=== PATIENT | male | born 1950 | race Caucasian/White ===

== ENCOUNTER 2017-07-24 12:45 | Inpatient (IN) ==
--- NOTE | 2017-07-26 12:31 | Internal Med History&Physical ---
Date of Encounter: 07/26/17 Time of Encounter: 12:26 Assessment and Plan (1) Clostridium difficile infection Current visit: No Status: Acute still having loose bowel movement continue present management Flagyl and Oral Vanco supportive treatment Labs ordered (2) Alcohol abuse Current visit: No Status: Chronic hx of one Pint a week no hx of withdrawl will follow and continue to monitor (3) Edema extremities Current visit: Yes Status: Chronic cause not known at the present with hx of Anemia , this all could be due to long hx of ETOH abuse and low Albumin. he denies any cardiac hx . Will order TSH , if needed cardiac echo and further assessment as needed (4) Back pain Current visit: Yes Status: Acute lower back pain not sure if its acute or chronic in nature according to him he had such pain in the past as well neurological stable will get xray to assess any vertebral deformity ,symptomatic treatment Qualifiers: Back pain location: low back pain Chronicity: unspecified Back pain laterality: midline Sciatica presence: without sciatica Qualified Code(s): M54.5 - Low back pain Internal Medicine - H&P: HPI Admitted From: Hospital to Hospital Transfer History of present illness: Mr. Horne is a 67 year old male with significant hx of ETOH abuse ,started having weakness and was unable to getup from bathroom roughly a week a go . he was taken to ED and was found to be septic ,cause C diff . He dneis using any antibiotics before this illness . Apparently he also had UTI. He was treated and once improved sent to [place] for continuation of treatment and rehab and he was weak and deconditioned . he still has some diarrhea but it has improved considerably Still his stool is loose . No abdominal pain still has some gas mild abdominal pain . He Denies any fever or chill no cough SOB on exertion only Feels weak in his legs Also complains of pain in lower back . he denies any Chest pain Nausea vomiting . Otherwise he feels fine. No hx of ETOH withdrawal last drin was about 8 days ago Past Med Surg Social Fam HX - Past Medical History Medical history: arthritis, GERD, liver disease, other (Monoclonal gammopathy of uncertain significance. Chronic alcoholism. Iron deficiency anemia.) Psychiatric history: no psych history, other - Past Surgical History Surgical History: non-contributory, other - Social History Smoking Status: Former smoker Smokeless Tobacco Status: No Alcohol use: heavy (1 liter of vodka per week), recent Drug use: none, unknown - Family History Father Family Member Ethnicity: Non- Living Status: Hx Family Cardiac Disorders: Yes Mother Family Member Ethnicity: Non- Living Status: Hx Family Cardiac Disorders: Yes Internal Medicine - H&P: Meds Acetaminophen [Tylenol] 650 mg PO Q6HR PRN tab 07/26/17 [Rx] Folic Acid 1 mg PO DAILY tab 07/26/17 [Rx] Lactobacillus [Culturelle] 1 each PO BID 07/26/17 [Rx] Omeprazole [PriLOSEC] 20 mg PO DAILY@0630 07/26/17 [Rx] Potassium Chloride 40 meq PO BID 07/26/17 [Rx] Thiamine (B-1) [Vitamin B-1] 100 mg PO DAILY tab 07/26/17 [Rx] Vancomycin Oral Soln [Vancocin] 250 mg PO QID 07/26/17 [Rx] Vitamin B Complex/Vit C/Vit E [Stresstab] 1 each PO DAILY tab 07/26/17 [Rx] metroNIDAZOLE [Flagyl] 500 mg PO Q6HR tab 07/26/17 [Rx] 3 Allergy/AdvReac Type Severity Reaction Status Date / Time No Known Allergies Allergy Verified 03/20/17 19:49 All Systems PM: A 10-system review of systems was performed and is negative for pertinent findings except as documented above in the HPI. - Constitutional Constitutional: malaise, weakness, no anorexia, no chills, no excessive sweating , no fatigue, no falls, no lethargy, no weight gain, no weight loss - EENT Eyes: no blurry vision, no change in vision, no diplopia, no loss of peripheral vision, no loss of vision, no pain, no photophobia Nose, mouth and throat: no change in voice, no dysphagia, no epistaxis, no nasal discharge, no nasal obstruction, no sinus pain, no sinus pressure, no sore throat - Breasts Breasts: no pain, no nipple discharge - Cardiovascular Cardiovascular ROS IM: dyspnea on exertion, edema, no chest pain, no claudication, no diaphoresis, no irregular heart rhythm, no lightheadedness, no orthopnea, no palpitations, no paroxysmal nocturnal dyspnea Additional comments: on exertion walk quickly - Respiratory Respiratory: dyspnea, dyspnea on exertion, no cough, no hemoptysis, no wheezing , no pain on inspiration, no chest congestion, no pain with cough - Gastrointestinal Gastrointestinal: abdominal pain, bloating, change in stool character, diarrhea , no constipation, no cramping, no dysphagia, no fecal incontinence, no melena, no nausea, no tenesmus Additional comments: abdominal pain lower abdomen improved but still feel little tender - Musculoskeletal Musculoskeletal ROS IM: back pain, no joint swelling, no limited range of motion , no muscle cramps, no neck pain, no stiffness, no tingling Additional comments: generalized weakness in legs - Neurological Neurological ROS: no abnormal gait, no abnormal movements, no abnormal speech, no confusion, no convulsions, no dizziness, no loss of vision, no numbness, no paresthesias, no radicular pain, no restless legs, no tremor(s) - Constitutional General appearance: Present: A&O X 3, pleasant. Absent: cachectic, mild distress, no acute distress, obese, severe distress - Head Head exam: Present: normal inspection - Expanded Head Exam Head exam expanded: Absent: contusion, laceration - Eye Eye exam: Present: EOMI, PERRL. Absent: periorbital swelling, scleral icterus, conjuntiva pink - ENT ENT exam: Present: mucous membranes moist. Absent: normal oropharynx - Neck Neck exam general surgery: Present: full ROM, supple. Absent: nuchal rigidity - Respiratory Respiratory exam: Absent: chest wall tenderness, CTAB, respiratory distress, rhonchi, stridor, wheezes, tachypnea - Cardiovascular Cardiovascular exam: Present: RRR. Absent: clicks, gallop, irregular rhythm, JVD, rubs - GI/Abdominal GI/Abdominal exam: Present: normal bowel sounds, soft, tenderness. Absent: pulsatile mass, rebound, rigid Additional comments: mild tenderness lower abdomen , no rebound - Rectal Rectal exam: Present: deferred Additional comments: having watery diarrhea - Extremities Exam Extremities exam: Present: pedal edema. Absent: mottling Additional comments: left pitting edema ++ right less + no swelling no tenderness - Back Exam Back exam: Present: normal inspection, tenderness. Absent: muscle spasm, rash noted Additional comments: lumbar area tenderness L4/5 area no para vertebral spasm noted no rash - Neurological Exam Neurological exam: Present: alert, CN II-XII intact, oriented X3, no focal deficits, strengths equal and symetr throughout. Absent: facial droop, speech deficit Additional comments: examination within normal limits - Psychiatric Psychiatric exam: Present: normal affect, normal mood. Absent: homicidal ideation, suicidal ideation
[2017-07-26] MEDS: Vancomycin Oral Soln 250 MG/2.5 ML UDC PO SCH ×3 (18:22→23:18)
[2017-07-26] MEDS: metroNIDAZOLE 500 MG TABLET PO SCH ×2 (18:29→23:17)
[2017-07-26] MEDS: Lactobacillus 1 EACH CAP.SPRINK PO SCH (23:17)
[2017-07-27 05:26] LABS: Basophils # 0.1 K/mcL (0.0-0.2); Basophils % 0.3 %; Eosinophils # 0.3 K/mcL (0.0-0.6); Eosinophils % 1.4 %; Hematocrit 27.1 % (37.5-50.1); Hemoglobin 9.3 g/dL (12.9-16.9); Immature Granulocytes % 4.3 % (0-4); Lymphocytes % 9.4 %; Mean Corpuscular HGB Conc 34.3 g/dL (31.6-35.5); Mean Corpuscular Hemoglobin 35.9 pg (28.0-33.3); Mean Corpuscular Volume 104.6 fL (83.0-100.0); Mean Platelet Volume 10.3 fL (9.4-12.4); Monocytes # 1.5 K/mcL (0.0-1.3); Monocytes % 7.2 %; Neutrophils # 16.5 K/mcL (1.6-8.9); Platelet Count 550 K/mcL (140-400); Red Blood Count 2.59 M/mcL (4.19-5.50); Red Cell Distribution Width 16.6 % (11.5-14.5); Segmented Neutrophils % 77.4 %
[2017-07-27 05:45] LABS: BUN/Creatinine Ratio 10 (6-26); Blood Urea Nitrogen 6 mg/dL (8-26); Calcium 7.2 mg/dL (8.6-10.8); Carbon Dioxide 19 mEq/L (19-29); Chloride 110 mEq/L (98-109); Glucose 107 mg/dL (70-99); Osmolality,Calculated 284 (280-300); Potassium 4.7 mEq/L (3.5-4.5); Sodium 138 mEq/L (136-145); eGFR For African Americans > 60 (> 60); eGFR For Non-African Americans > 60 (> 60)
[2017-07-27] MEDS: metroNIDAZOLE 500 MG TABLET PO SCH ×4 (06:16→23:04)
[2017-07-27] MEDS: Acetaminophen 325 MG TABLET PO PRN (10:02)
[2017-07-27] MEDS: Vancomycin Oral Soln 250 MG/2.5 ML UDC PO SCH ×4 (10:03→21:28)
[2017-07-27] MEDS: Lactobacillus 1 EACH CAP.SPRINK PO SCH ×2 (10:03→21:24)
[2017-07-27] MEDS: Folic Acid 1 MG TABLET PO SCH (10:03)
[2017-07-27] MEDS: Vitamin B Complex/Vit C/Vit E 1 EACH TABLET PO SCH (10:03)
[2017-07-27] MEDS: Thiamine (B-1) 100 MG TABLET PO SCH (10:08)
--- NOTE | 2017-07-27 12:23 | Internal Med Progress Note ---
Date of Encounter: 07/27/17 Time of Encounter: 12:21 - Assessment and plan (1) Clostridium difficile infection Current Visit: No Status: Acute Assessment and plan: WBC still high he is still having loose stools ON oral Vanco and Flagyl Continue present treatment (2) Alcohol abuse Current Visit: No Status: Chronic Assessment and plan: stable no withdrawal (3) Edema extremities Current Visit: Yes Status: Chronic Assessment and plan: same as before (4) Back pain Current Visit: Yes Status: Acute Qualifiers: Back pain location: low back pain Chronicity: unspecified Back pain laterality: midline Sciatica presence: without sciatica Qualified Code(s): M54.5 - Low back pain (5) Seborrhea Current Visit: Yes Status: Chronic Assessment and plan: scales cabello and scalp no other lesions noted in other part of his body local treatment selenium sulfide and combination low potency steriod lotion on face - Subjective Interval history: pt denies any complains at the present time .No fever or chill .No abdominal discomfort .Has been having loose bowel movement still watery Sleeping well - Constitutional Vitals: Temp Pulse Resp BP Pulse Ox 98.0 F 93 18 102/64 97 07/27/17 10:48 07/27/17 10:48 07/27/17 10:48 07/27/17 10:48 07/27/17 10:48 General appearance: Present: A&O X 3, pleasant. Absent: cachectic, mild distress, no acute distress, obese, severe distress - Head Head exam: Present: atraumatic - Eye Eye exam: Present: EOMI, PERRL - ENT ENT exam: Present: mucous membranes moist - Neck Neck exam general surgery: Present: supple. Absent: tenderness, nuchal rigidity - Respiratory Respiratory exam: Present: CTAB. Absent: respiratory distress, rhonchi, stridor , wheezes - Cardiovascular Cardiovascular exam: Present: RRR. Absent: irregular rhythm, JVD Additional comments: no murmers - GI/Abdominal GI/Abdominal exam: Present: normal bowel sounds, soft, tenderness. Absent: diminished bowel sounds, distended (on lower abdomen ), firm, guarding, rebound , rigid - Extremities Exam Extremities exam: Present: pedal edema. Absent: tenderness Additional comments: both feet ++ more on the left side no new change - Neurological Exam Neurological exam: Present: CN II-XII intact, oriented X3, reflexes normal, no focal deficits. Absent: facial droop, speech deficit Internal Medicine: Result - Labs CBC & Chem 7: 07/27/17 05:00 07/27/17 05:00 Labs: Short CBC 07/27/17 Range/Units 05:00 WBC 21.3 H (4.3-11.1) K/mcL Hgb 9.3 L (12.9-16.9) g/dL Hct 27.1 L (37.5-50.1) % Plt Count 550 H (140-400) K/mcL Neutrophils # 16.5 H (1.6-8.9) K/mcL BMP 07/27/17 05:00 Sodium 138 Potassium 4.7 H Chloride 110 H Carbon Dioxide 19 BUN 6 L Creatinine 0.62 L Glucose 107 H Calcium 7.2 L Consult Discharge Plan - Plan Referrals: Avtar Caba DO [Primary Care Provider] -
[2017-07-27] MEDS: Triamcinolone Acet 0.1% CRM 15 GM TUBE TP SCH (21:27)
[2017-07-28] MEDS: metroNIDAZOLE 500 MG TABLET PO SCH ×3 (06:24→17:48)
--- NOTE | 2017-07-28 06:57 | Internal Med Progress Note ---
Date of Encounter: 07/28/17 Time of Encounter: 06:55 - Assessment and plan (1) Clostridium difficile infection Current Visit: No Status: Acute Assessment and plan: Active issue on oral meds continue supportive treatment and antibiotics no new change stable so far labs ordered including calcium and Albumin. (2) Alcohol abuse Current Visit: No Status: Chronic Assessment and plan: no withdraw stable continue to monitor (3) Edema extremities Current Visit: Yes Status: Chronic Assessment and plan: resolving this morning edema is negative most likely due to low albumin (4) Back pain Current Visit: Yes Status: Acute Assessment and plan: stable no new complains Qualifiers: Back pain location: low back pain Chronicity: unspecified Back pain laterality: midline Sciatica presence: without sciatica Qualified Code(s): M54.5 - Low back pain (5) Seborrhea Current Visit: Yes Status: Chronic Assessment and plan: local treatment started - Subjective Interval history: Feels same no new change doesn't feel that he is getting any better however his frequency of stool has decreased still watery in nature . Afebrile no abdominal distention or pain at the present time - Constitutional Vitals: Temp Pulse Resp BP Pulse Ox 98.7 F 103 15 114/95 99 07/27/17 19:43 07/27/17 19:43 07/27/17 19:43 07/27/17 19:43 07/27/17 19:43 General appearance: Present: A&O X 3, pleasant. Absent: cachectic, mild distress, no acute distress, obese, severe distress - Head Head exam: Present: atraumatic, normal inspection - Eye Eye exam: Present: EOMI, PERRL. Absent: scleral icterus, conjuntiva pink - Neck Neck exam general surgery: Present: supple. Absent: tenderness, nuchal rigidity - Respiratory Respiratory exam: Present: CTAB. Absent: chest wall tenderness, decreased breath sounds, respiratory distress, wheezes - Cardiovascular Cardiovascular exam: Present: RRR. Absent: irregular rhythm, JVD, systolic murmur - GI/Abdominal GI/Abdominal exam: Present: normal bowel sounds, soft, tenderness. Absent: guarding, rebound, rigid Additional comments: mild tenderness lower abdomen more on pressing it down no peritoneal signs - Extremities Exam Extremities exam: Absent: mottling, pedal edema Additional comments: edema improved considerable today - Neurological Exam Neurological exam: Present: CN II-XII intact, oriented X3, no focal deficits, strengths equal and symetr throughout. Absent: facial droop, speech deficit Additional comments: normal examination - Skin Additional comments: scales face and scalp . dermatitis Internal Medicine: Result - Labs CBC & Chem 7: 07/27/17 05:00 07/27/17 05:00 Consult Discharge Plan - Plan Referrals: Avtar Caba DO [Primary Care Provider] -
[2017-07-28] MEDS: Triamcinolone Acet 0.1% CRM 15 GM TUBE TP SCH ×2 (09:01→21:40)
[2017-07-28] MEDS: Vitamin B Complex/Vit C/Vit E 1 EACH TABLET PO SCH (09:03)
[2017-07-28] MEDS: Thiamine (B-1) 100 MG TABLET PO SCH (09:04)
[2017-07-28] MEDS: Folic Acid 1 MG TABLET PO SCH (09:04)
[2017-07-28] MEDS: Acetaminophen 325 MG TABLET PO PRN ×2 (09:05→21:57)
[2017-07-28] MEDS: Lactobacillus 1 EACH CAP.SPRINK PO SCH ×2 (09:05→21:57)
[2017-07-28] MEDS: Vancomycin Oral Soln 250 MG/2.5 ML UDC PO SCH ×4 (11:34→21:57)
[2017-07-29] MEDS: metroNIDAZOLE 500 MG TABLET PO SCH ×5 (00:28→23:42)
[2017-07-29 05:58] LABS: Basophils % 0.2 %; Eosinophils # 0.2 K/mcL (0.0-0.6); Hemoglobin 8.4 g/dL (12.9-16.9); Immature Granulocytes % 2.2 % (0-4); Lymphocytes # 1.9 K/mcL (0.6-4.6); Lymphocytes % 12.2 %; Mean Corpuscular Hemoglobin 35.9 pg (28.0-33.3); Mean Corpuscular Volume 102.6 fL (83.0-100.0); Mean Platelet Volume 10.1 fL (9.4-12.4); Monocytes # 1.1 K/mcL (0.0-1.3); Monocytes % 7.2 %; Neutrophils # 11.7 K/mcL (1.6-8.9); Platelet Count 462 K/mcL (140-400); Red Blood Count 2.34 M/mcL (4.19-5.50); Red Cell Distribution Width 16.2 % (11.5-14.5); Segmented Neutrophils % 77.2 %
[2017-07-29 06:06] LABS: Calcium 7.2 mg/dL (8.6-10.8)
--- NOTE | 2017-07-29 09:42 | Internal Med Progress Note ---
Date of Encounter: 07/29/17 Time of Encounter: 09:40 - Assessment and plan (1) Clostridium difficile infection Current Visit: No Status: Acute Assessment and plan: slwoly improving His WBC are getting better slowly . His calcium corrected is 8.8 which is normal limits abdominal examination is stable continue present treatment (2) Alcohol abuse Current Visit: No Status: Chronic Assessment and plan: stable ,no withdraw poor intake as evident by low albumin (3) Edema extremities Current Visit: Yes Status: Resolved Assessment and plan: due to low albumin resolved conservative treatment (4) Back pain Current Visit: Yes Status: Acute Assessment and plan: stable Qualifiers: Back pain location: low back pain Chronicity: unspecified Back pain laterality: midline Sciatica presence: without sciatica Qualified Code(s): M54.5 - Low back pain (5) Seborrhea Current Visit: Yes Status: Chronic Assessment and plan: continue present treatment (6) Anemia Current Visit: No Status: Chronic Assessment and plan: will get levels again . On folic acid and B12 supplement . 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 - Constitutional Vitals: Temp Pulse Resp BP Pulse Ox 98.0 F 95 17 116/72 95 07/29/17 07:46 07/29/17 07:46 07/29/17 07:46 07/29/17 07:46 07/29/17 07:46 General appearance: Present: A&O X 3, pleasant. Absent: cachectic, mild distress, no acute distress, obese, severe distress - Eye Eye exam: Present: EOMI, PERRL. Absent: scleral icterus, conjuntiva pink Pupils: Present: PERRL - Neck Neck exam general surgery: Present: supple. Absent: tenderness, nuchal rigidity - Respiratory Respiratory exam: Present: CTAB. Absent: respiratory distress, rhonchi, stridor , wheezes, tachypnea - Cardiovascular Cardiovascular exam: Present: RRR, +S1, +S2. Absent: irregular rhythm, JVD, tachycardia - GI/Abdominal GI/Abdominal exam: Present: normal bowel sounds, soft, tenderness. Absent: distended, guarding, rigid Additional comments: mild tenderness lower abdomen no rebound same as before mild improvement in pain - Neurological Exam Neurological exam: Present: alert, CN II-XII intact, oriented X3, no focal deficits, strengths equal and symetr throughout. Absent: pronater drift, facial droop, speech deficit - Skin Additional comments: dry scales face and scalp as before Internal Medicine: Result - Labs CBC & Chem 7: 07/29/17 05:45 07/27/17 05:00 Labs: Short CBC 07/29/17 Range/Units 05:45 WBC 15.2 H (4.3-11.1) K/mcL Hgb 8.4 L (12.9-16.9) g/dL Hct 24.0 L (37.5-50.1) % Plt Count 462 H (140-400) K/mcL Neutrophils # 11.7 H (1.6-8.9) K/mcL BMP 07/29/17 05:45 Calcium 7.2 L Liver Function 07/29/17 Range/Units 05:45 Albumin 1.9 L (3.5-5.0) g/dL Consult Discharge Plan - Plan Referrals: Avtar Caba DO [Primary Care Provider] -
[2017-07-29] MEDS: Triamcinolone Acet 0.1% CRM 15 GM TUBE TP SCH ×2 (09:44→20:07)
[2017-07-29] MEDS: Folic Acid 1 MG TABLET PO SCH (09:46)
[2017-07-29] MEDS: Vitamin B Complex/Vit C/Vit E 1 EACH TABLET PO SCH (09:46)
[2017-07-29] MEDS: Lactobacillus 1 EACH CAP.SPRINK PO SCH ×2 (09:46→20:04)
[2017-07-29] MEDS: Vancomycin Oral Soln 250 MG/2.5 ML UDC PO SCH ×4 (09:47→20:04)
[2017-07-29] MEDS: Thiamine (B-1) 100 MG TABLET PO SCH (09:47)
[2017-07-29] MEDS: Acetaminophen 325 MG TABLET PO PRN ×2 (11:18→20:15)
[2017-07-29 18:11] LABS: Ionized Calcium 0.9 mmol/L (1.15-1.35)
[2017-07-30] MEDS: *HR* Enoxaparin 40 MG/0.4 ML SYRINGE SQ SCH (05:31)
[2017-07-30] MEDS: metroNIDAZOLE 500 MG TABLET PO SCH ×4 (05:31→23:29)
[2017-07-30] MEDS: Thiamine (B-1) 100 MG TABLET PO SCH (08:12)
[2017-07-30] MEDS: Acetaminophen 325 MG TABLET PO PRN ×2 (08:12→22:30)
[2017-07-30] MEDS: Vitamin B Complex/Vit C/Vit E 1 EACH TABLET PO SCH (08:12)
[2017-07-30] MEDS: Vancomycin Oral Soln 250 MG/2.5 ML UDC PO SCH ×4 (08:13→22:31)
[2017-07-30] MEDS: Lactobacillus 1 EACH CAP.SPRINK PO SCH ×2 (08:13→22:30)
[2017-07-30] MEDS: Ketoconazole Shampoo 120 ML BOTTLE TP SCH ×2 (08:13→14:28)
[2017-07-30] MEDS: Folic Acid 1 MG TABLET PO SCH (08:13)
--- NOTE | 2017-07-30 09:42 | Internal Med Progress Note ---
Date of Encounter: 07/30/17 Time of Encounter: 09:40 - Assessment and plan (1) Clostridium difficile infection Current Visit: No Status: Acute Assessment and plan: CBC getting better , if stool getting well formed he si improving continue present medications. stable (2) Alcohol abuse Current Visit: No Status: Chronic Assessment and plan: stable no new change no withdrawal no interactive today (3) Edema extremities Current Visit: Yes Status: Resolved (4) Back pain Current Visit: Yes Status: Acute Assessment and plan: stable no pain at the present time Qualifiers: Back pain location: low back pain Chronicity: unspecified Back pain laterality: midline Sciatica presence: without sciatica Qualified Code(s): M54.5 - Low back pain (5) Seborrhea Current Visit: Yes Status: Chronic Assessment and plan: looks better today local treatment (6) Anemia Current Visit: No Status: Chronic Assessment and plan: stable low calcium add supplement Qualifiers: Anemia type: folate deficiency Folate deficiency anemia type: dietary Qualified Code(s): 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 Abdominal pain is some what better . otherwise no other issues no fever or chills no SOb . eating well appetite is getting better - Constitutional Vitals: Temp Pulse Resp BP Pulse Ox 98.8 F 89 14 119/73 97 07/30/17 07:00 07/30/17 07:00 07/30/17 07:00 07/30/17 07:00 07/30/17 07:00 General appearance: Present: A&O X 3, pleasant. Absent: cachectic, mild distress, no acute distress, obese, severe distress - Head Head exam: Present: atraumatic - Eye Eye exam: Present: EOMI, PERRL. Absent: conjunctival injection, scleral icterus , conjuntiva pink Pupils: Present: PERRL - Neck Neck exam general surgery: Present: full ROM, supple. Absent: tenderness, nuchal rigidity - Respiratory Respiratory exam: Present: CTAB. Absent: accessory muscle use, chest wall tenderness, rales, respiratory distress, rhonchi, stridor, wheezes - Cardiovascular Cardiovascular exam: Present: RRR, rubs, +S2. Absent: gallop, irregular rhythm , JVD, tachycardia - GI/Abdominal GI/Abdominal exam: Present: normal bowel sounds, soft, tenderness. Absent: guarding, rebound, rigid Additional comments: mild tenderness lower abdomen - Extremities Exam Extremities exam: Absent: calf tenderness, pedal edema, tenderness - Neurological Exam Neurological exam: Present: CN II-XII intact, oriented X3, no focal deficits, strengths equal and symetr throughout. Absent: facial droop, speech deficit Internal Medicine: Result - Labs CBC & Chem 7: 07/29/17 05:45 07/27/17 05:00 Consult Discharge Plan - Plan Referrals: Avtar Caba DO [Primary Care Provider] -
[2017-07-30 12:30] LABS: % Iron Saturation 34 % (20-55); Iron 53 mcg/dL (65-175); Transferrin 110 mg/dL (174-364)
[2017-07-30 13:02] LABS: Folate 12.3 ng/mL (7.0-31.4)
[2017-07-30] MEDS: Triamcinolone Acet 0.1% CRM 15 GM TUBE TP SCH ×2 (14:23→22:30)
[2017-07-31] MEDS: *HR* Enoxaparin 40 MG/0.4 ML SYRINGE SQ SCH (06:41)
[2017-07-31] MEDS: metroNIDAZOLE 500 MG TABLET PO SCH ×4 (06:41→22:45)
[2017-07-31] MEDS: Triamcinolone Acet 0.1% CRM 15 GM TUBE TP SCH ×2 (09:30→22:46)
[2017-07-31] MEDS: Folic Acid 1 MG TABLET PO SCH (09:30)
[2017-07-31] MEDS: Vitamin B Complex/Vit C/Vit E 1 EACH TABLET PO SCH (09:30)
[2017-07-31] MEDS: Vancomycin Oral Soln 250 MG/2.5 ML UDC PO SCH ×4 (09:30→22:45)
[2017-07-31] MEDS: Thiamine (B-1) 100 MG TABLET PO SCH (13:48)
--- NOTE | 2017-07-31 14:14 | Internal Med Progress Note ---
Date of Encounter: 07/31/17 Time of Encounter: 15:00 - Assessment and plan (1) Severe sepsis Current Visit: No Status: Resolved Assessment and plan: Asians seems stable we will follow his lab but he looks pretty good and no complaints - Time Spent With Patient less than 15 minutes - Subjective Interval history: Working with a therapist - Constitutional Vitals: Temp Pulse Resp BP Pulse Ox 98.6 F 85 15 144/76 98 07/31/17 07:00 07/31/17 07:00 07/31/17 07:00 07/31/17 07:00 07/31/17 07:00 General appearance: Present: A&O X 3, pleasant. Absent: cachectic, mild distress, no acute distress, obese, severe distress - Head Head exam: Present: atraumatic, normal inspection, normocephalic - Respiratory Respiratory exam: Present: CTAB. Absent: accessory muscle use, rales, rhonchi, wheezes - Cardiovascular Cardiovascular exam: Present: RRR, +S1, +S2. Absent: diastolic murmur, gallop, rubs, systolic murmur Internal Medicine: Result - Labs CBC & Chem 7: 07/29/17 05:45 07/27/17 05:00 Consult Discharge Plan - Plan Referrals: Avtar Caba DO [Primary Care Provider] -
[2017-07-31] MEDS: Lactobacillus 1 EACH CAP.SPRINK PO SCH ×2 (14:17→22:45)
[2017-07-31] MEDS: Acetaminophen 325 MG TABLET PO PRN (22:45)
[2017-08-01] MEDS: *HR* Enoxaparin 40 MG/0.4 ML SYRINGE SQ SCH (06:14)
[2017-08-01] MEDS: metroNIDAZOLE 500 MG TABLET PO SCH ×4 (06:14→22:31)
[2017-08-01] MEDS: Thiamine (B-1) 100 MG TABLET PO SCH (09:27)
[2017-08-01] MEDS: Vitamin B Complex/Vit C/Vit E 1 EACH TABLET PO SCH (09:27)
[2017-08-01] MEDS: Vancomycin Oral Soln 250 MG/2.5 ML UDC PO SCH ×4 (09:27→22:31)
[2017-08-01] MEDS: Diphenoxylate/Atropine 1 TAB TABLET PO PRN (09:27)
[2017-08-01] MEDS: Lactobacillus 1 EACH CAP.SPRINK PO SCH ×2 (09:27→22:31)
[2017-08-01] MEDS: Folic Acid 1 MG TABLET PO SCH (09:27)
[2017-08-01] MEDS: Acetaminophen 325 MG TABLET PO PRN (09:27)
[2017-08-01] MEDS: Triamcinolone Acet 0.1% CRM 15 GM TUBE TP SCH ×2 (09:29→22:37)
--- NOTE | 2017-08-01 15:26 | Internal Med Progress Note ---
Date of Encounter: 08/01/17 Time of Encounter: 15:20 - Assessment and plan (1) Severe sepsis Current Visit: No Status: Resolved Assessment and plan: This seems to be resolved - Time Spent With Patient less than 15 minutes - Subjective Interval history: CC therapy note patient complains that therapy caused him to be weaker. But i . I did note that his TSH was elevated running now free T3 of 4 and if these are low then I think that could be part of his tiredness. Those are finally starting to firm up some think he gets tired easily - Constitutional Vitals: Temp Pulse Resp BP Pulse Ox 98.8 F 77 16 141/82 96 08/01/17 07:00 08/01/17 07:00 08/01/17 07:00 08/01/17 07:00 08/01/17 07:00 General appearance: Present: A&O X 3, pleasant. Absent: cachectic, mild distress, no acute distress, obese, severe distress - Head Head exam: Present: atraumatic, normal inspection, normocephalic - Neck Neck exam general surgery: Present: supple, trachea midline. Absent: lymphadenopathy - Respiratory Respiratory exam: Present: CTAB. Absent: accessory muscle use, rales, rhonchi, wheezes - Cardiovascular Cardiovascular exam: Present: RRR, +S1, +S2. Absent: diastolic murmur, gallop, rubs, systolic murmur Internal Medicine: Result - Labs CBC & Chem 7: 07/29/17 05:45 07/27/17 05:00 Consult Discharge Plan - Plan Referrals: Avtar Caba DO [Primary Care Provider] -
[2017-08-02 05:03] LABS: BUN/Creatinine Ratio 15 (6-26); Blood Urea Nitrogen 9 mg/dL (8-26); Calcium 7.8 mg/dL (8.6-10.8); Carbon Dioxide 21 mEq/L (19-29); Chloride 110 mEq/L (98-109); Glucose 104 mg/dL (70-99); Osmolality,Calculated 287 (280-300); Potassium 3.3 mEq/L (3.5-4.5); Sodium 139 mEq/L (136-145); eGFR For African Americans > 60 (> 60); eGFR For Non-African Americans > 60 (> 60)
[2017-08-02] MEDS: *HR* Enoxaparin 40 MG/0.4 ML SYRINGE SQ SCH (05:41)
[2017-08-02] MEDS: metroNIDAZOLE 500 MG TABLET PO SCH ×3 (05:42→17:00)
[2017-08-02 08:47] LABS: Triiodothyronine (T3) Free 2.28 pg/mL (1.71-3.71)
[2017-08-02] MEDS: Vitamin B Complex/Vit C/Vit E 1 EACH TABLET PO SCH (09:20)
[2017-08-02] MEDS: Diphenoxylate/Atropine 1 TAB TABLET PO PRN (09:20)
[2017-08-02] MEDS: Folic Acid 1 MG TABLET PO SCH (09:20)
[2017-08-02] MEDS: Acetaminophen 325 MG TABLET PO PRN ×2 (09:20→20:22)
[2017-08-02] MEDS: Thiamine (B-1) 100 MG TABLET PO SCH (09:20)
[2017-08-02] MEDS: Lactobacillus 1 EACH CAP.SPRINK PO SCH ×2 (09:20→20:08)
[2017-08-02] MEDS: Vancomycin Oral Soln 250 MG/2.5 ML UDC PO SCH ×4 (09:21→20:09)
[2017-08-02] MEDS: Triamcinolone Acet 0.1% CRM 15 GM TUBE TP SCH ×2 (09:56→20:09)
[2017-08-02] MEDS: Ketoconazole Shampoo 120 ML BOTTLE TP SCH (09:57)
--- NOTE | 2017-08-02 16:45 | Internal Med Progress Note ---
Date of Encounter: 08/02/17 Time of Encounter: 15:00 - Subjective Interval history: L patient states that his stools are firming up he did not have any BM's last night her loose stools today. I may have to back off the meds but he is improving - Constitutional Vitals: Temp Pulse Resp BP Pulse Ox 98.2 F 87 16 132/72 97 08/02/17 07:19 08/02/17 07:19 08/02/17 07:19 08/02/17 07:19 08/02/17 07:19 General appearance: Present: A&O X 3, pleasant. Absent: cachectic, mild distress, no acute distress, obese, severe distress - Head Head exam: Present: atraumatic, normal inspection, normocephalic - Neck Neck exam general surgery: Present: supple, trachea midline. Absent: lymphadenopathy - Respiratory Respiratory exam: Present: CTAB. Absent: accessory muscle use, rales, rhonchi, wheezes - Cardiovascular Cardiovascular exam: Present: RRR, +S1, +S2. Absent: diastolic murmur, gallop, rubs, systolic murmur Internal Medicine: Result - Labs CBC & Chem 7: 07/29/17 05:45 08/02/17 04:39 Labs: BMP 08/02/17 04:39 Sodium 139 Potassium 3.3 L Chloride 110 H Carbon Dioxide 21 BUN 9 Creatinine 0.61 L Glucose 104 H Calcium 7.8 L The watch his potassium closely Consult Discharge Plan - Plan Referrals: Avtar Caba DO [Primary Care Provider] -
[2017-08-03] MEDS: metroNIDAZOLE 500 MG TABLET PO SCH ×4 (01:02→17:52)
[2017-08-03 05:24] LABS: Basophils % 0.2 %; Eosinophils # 0.2 K/mcL (0.0-0.6); Eosinophils % 1.4 %; Hematocrit 23.5 % (37.5-50.1); Hemoglobin 8.2 g/dL (12.9-16.9); Immature Granulocytes % 0.6 % (0-4); Lymphocytes # 1.8 K/mcL (0.6-4.6); Lymphocytes % 14.3 %; Mean Corpuscular HGB Conc 34.9 g/dL (31.6-35.5); Mean Corpuscular Hemoglobin 35.5 pg (28.0-33.3); Mean Corpuscular Volume 101.7 fL (83.0-100.0); Mean Platelet Volume 10.6 fL (9.4-12.4); Monocytes # 0.9 K/mcL (0.0-1.3); Monocytes % 6.7 %; Neutrophils # 9.8 K/mcL (1.6-8.9); Platelet Count 390 K/mcL (140-400); Red Blood Count 2.31 M/mcL (4.19-5.50); Red Cell Distribution Width 15.2 % (11.5-14.5); Segmented Neutrophils % 76.8 %
[2017-08-03 05:40] LABS: BUN/Creatinine Ratio 14 (6-26); Blood Urea Nitrogen 8 mg/dL (8-26); Calcium 8.1 mg/dL (8.6-10.8); Carbon Dioxide 19 mEq/L (19-29); Chloride 111 mEq/L (98-109); Glucose 102 mg/dL (70-99); Osmolality,Calculated 289 (280-300); Potassium 3.2 mEq/L (3.5-4.5); Sodium 140 mEq/L (136-145); eGFR For African Americans > 60 (> 60); eGFR For Non-African Americans > 60 (> 60)
[2017-08-03] MEDS: *HR* Enoxaparin 40 MG/0.4 ML SYRINGE SQ SCH (05:54)
[2017-08-03] MEDS: Lactobacillus 1 EACH CAP.SPRINK PO SCH ×2 (09:12→22:29)
[2017-08-03] MEDS: Vitamin B Complex/Vit C/Vit E 1 EACH TABLET PO SCH (09:12)
[2017-08-03] MEDS: Folic Acid 1 MG TABLET PO SCH (09:12)
[2017-08-03] MEDS: Thiamine (B-1) 100 MG TABLET PO SCH (09:13)
[2017-08-03] MEDS: Acetaminophen 325 MG TABLET PO PRN (09:13)
[2017-08-03] MEDS: Triamcinolone Acet 0.1% CRM 15 GM TUBE TP SCH ×2 (09:13→22:30)
[2017-08-03] MEDS: Vancomycin Oral Soln 250 MG/2.5 ML UDC PO SCH ×4 (09:13→22:29)
--- NOTE | 2017-08-03 11:28 | Internal Med Progress Note ---
Date of Encounter: 08/03/17 Time of Encounter: 11:25 - Assessment and plan (1) Hypokalemia Current Visit: No Status: Acute Assessment and plan: Currently being addressed (2) Alcohol abuse Current Visit: No Status: Chronic Assessment and plan: Obviously right now no drinking is occurring and he will be counseled (3) UTI (urinary tract infection) Current Visit: No Status: Resolved Assessment and plan: Currently being treated Qualifiers: Urinary tract infection type: acute cystitis Hematuria presence: without hematuria Qualified Code(s): N30.00 - Acute cystitis without hematuria (4) Clostridium difficile infection Current Visit: No Status: Acute Assessment and plan: Seems resolved - Time Spent With Patient less than 15 minutes - Subjective Interval history: L no diarrhea reported. Patient's only complaint is his neck is sore inguinal apply some heat. - Constitutional Vitals: Temp Pulse Resp BP Pulse Ox 98.0 F 75 18 142/75 94 08/03/17 07:17 08/03/17 07:17 08/03/17 07:17 08/03/17 07:17 08/03/17 07:17 General appearance: Present: A&O X 3, pleasant. Absent: cachectic, mild distress, no acute distress, obese, severe distress - Head Head exam: Present: atraumatic, normal inspection, normocephalic - Neck Neck exam general surgery: Present: supple, trachea midline. Absent: lymphadenopathy - Respiratory Respiratory exam: Present: CTAB. Absent: accessory muscle use, rales, rhonchi, wheezes - Cardiovascular Cardiovascular exam: Present: RRR, +S1, +S2. Absent: diastolic murmur, gallop, rubs, systolic murmur Internal Medicine: Result - Labs CBC & Chem 7: 08/03/17 04:40 08/03/17 04:40 Labs: Short CBC 08/03/17 Range/Units 04:40 WBC 12.7 H (4.3-11.1) K/mcL Hgb 8.2 L (12.9-16.9) g/dL Hct 23.5 L (37.5-50.1) % Plt Count 390 (140-400) K/mcL Neutrophils # 9.8 H (1.6-8.9) K/mcL BMP 08/03/17 04:40 Sodium 140 Potassium 3.2 L Chloride 111 H Carbon Dioxide 19 BUN 8 Creatinine 0.59 L Glucose 102 H Calcium 8.1 L Followed potassium Consult Discharge Plan - Plan Referrals: Avtar Caba DO [Primary Care Provider] -
[2017-08-04] MEDS: metroNIDAZOLE 500 MG TABLET PO SCH ×5 (00:19→22:10)
[2017-08-04] MEDS: *HR* Enoxaparin 40 MG/0.4 ML SYRINGE SQ SCH (05:28)
[2017-08-04] MEDS: Thiamine (B-1) 100 MG TABLET PO SCH (08:50)
[2017-08-04] MEDS: Vitamin B Complex/Vit C/Vit E 1 EACH TABLET PO SCH (08:50)
[2017-08-04] MEDS: Lactobacillus 1 EACH CAP.SPRINK PO SCH ×2 (08:50→22:09)
[2017-08-04] MEDS: Folic Acid 1 MG TABLET PO SCH (08:50)
[2017-08-04] MEDS: Vancomycin Oral Soln 250 MG/2.5 ML UDC PO SCH ×4 (08:51→22:09)
[2017-08-04] MEDS: Triamcinolone Acet 0.1% CRM 15 GM TUBE TP SCH ×2 (08:53→22:09)
[2017-08-04] MEDS: Acetaminophen 325 MG TABLET PO PRN (22:10)
[2017-08-05] MEDS: metroNIDAZOLE 500 MG TABLET PO SCH ×4 (05:04→22:17)
[2017-08-05] MEDS: *HR* Enoxaparin 40 MG/0.4 ML SYRINGE SQ SCH (05:04)
[2017-08-05] MEDS: Vitamin B Complex/Vit C/Vit E 1 EACH TABLET PO SCH (08:50)
[2017-08-05] MEDS: Folic Acid 1 MG TABLET PO SCH (08:50)
[2017-08-05] MEDS: Vancomycin Oral Soln 250 MG/2.5 ML UDC PO SCH ×4 (08:50→22:15)
[2017-08-05] MEDS: Lactobacillus 1 EACH CAP.SPRINK PO SCH ×2 (08:50→22:15)
[2017-08-05] MEDS: Triamcinolone Acet 0.1% CRM 15 GM TUBE TP SCH ×2 (08:51→22:16)
[2017-08-05] MEDS: Thiamine (B-1) 100 MG TABLET PO SCH (08:51)
--- NOTE | 2017-08-05 09:42 | Internal Med Progress Note ---
Date of Encounter: 08/04/17 Time of Encounter: 18:30 - Assessment and plan (1) Clostridium difficile infection Current Visit: No Status: Acute (2) Alcohol abuse Current Visit: No Status: Chronic - Time Spent With Patient 25 - 35 minutes - Subjective Interval history: - Doing well, no particular concern. - Stool is still runny. - No problem with urination. - Eating and drinking fine. - Constitutional Vitals: Temp Pulse Resp BP Pulse Ox 98.3 F 92 15 166/87 98 08/04/17 19:30 08/04/17 19:30 08/04/17 19:30 08/04/17 19:30 08/04/17 19:30 General appearance: Present: A&O X 3, pleasant. Absent: cachectic, mild distress, no acute distress, obese, severe distress Exam: Gen: A&Ox3, NAD. HEENT: NCAT. Neck: No palpable lymphadenopathy or thyromegaly. CV: RRR, S1S2. No murmur. Capillary refill < 2 seconds. Pulm: CTAB. No crackles, wheezing, or rhonchi. Abd: (+)BS. NDNT. No guarding, rigidity, or rebound. Neuro: Mild glogbal weakness, otherwise non-focal. Skin: No rash. Ext: No pitting edema. Internal Medicine: Result - Labs CBC & Chem 7: 08/03/17 04:40 08/04/17 05:25 Labs: Reviewed Consult Discharge Plan - Plan Referrals: Avtar Caba DO [Primary Care Provider] -
[2017-08-05 10:53] LABS: Calcium 8.5 mg/dL (8.6-10.8); Carbon Dioxide 20 mEq/L (19-29); Chloride 108 mEq/L (98-109); Glucose 104 mg/dL (70-99); Potassium 4.1 mEq/L (3.5-4.5); Sodium 139 mEq/L (136-145)
[2017-08-05 10:54] LABS: Blood Urea Nitrogen 7 mg/dL (8-26); Osmolality,Calculated 286 (280-300)
[2017-08-05 10:55] LABS: BUN/Creatinine Ratio 11 (6-26); eGFR For African Americans > 60 (> 60); eGFR For Non-African Americans > 60 (> 60)
--- NOTE | 2017-08-05 12:03 | Internal Med Progress Note ---
Date of Encounter: 08/05/17 Time of Encounter: 12:00 - Assessment and plan (1) Clostridium difficile infection Current Visit: No Status: Acute Assessment and plan: Overall improving. Continue PO vancomycin and PO metronidazole. (2) Alcohol abuse Current Visit: No Status: Chronic Assessment and plan: Continue multivit supplementation. Can potentially benefit from resource referral at discharge. (3) Physical deconditioning Current Visit: Yes Status: Acute Assessment and plan: Encouraged the patient to work with therapists and mobilize as much as tolerated. - Time Spent With Patient less than 15 minutes - Subjective Interval history: - Doing well, no particular concern. - Stool is clumpy this morning, better than yesterday. - Eating and drinking fine. - Has not been up and about today. - Constitutional Vitals: Temp Pulse Resp BP Pulse Ox 98.3 F 92 15 166/87 98 08/04/17 19:30 08/04/17 19:30 08/04/17 19:30 08/04/17 19:30 08/04/17 19:30 General appearance: Present: A&O X 3, pleasant, no acute distress. Absent: obese Exam: Gen: A&Ox3, NAD. HEENT: NCAT. Neck: No palpable lymphadenopathy or thyromegaly. CV: RRR, S1S2. No murmur. Capillary refill < 2 seconds. Pulm: CTAB. No crackles, wheezing, or rhonchi. Abd: (+)BS. NDNT. No guarding, rigidity, or rebound. Neuro: Mild glogbal weakness, otherwise non-focal. Skin: No rash. Ext: No pitting edema. Internal Medicine: Result - Labs CBC & Chem 7: 08/03/17 04:40 08/05/17 09:43 Labs: BMP 08/05/17 09:43 Sodium 139 Potassium 4.1 Chloride 108 Carbon Dioxide 20 BUN 7 L Creatinine 0.63 L Glucose 104 H Calcium 8.5 L Reviewed Consult Discharge Plan - Plan Referrals: Avtar Caba DO [Primary Care Provider] -
[2017-08-05] MEDS: Acetaminophen 325 MG TABLET PO PRN (22:15)
[2017-08-06 05:39] LABS: Basophils # 0.1 K/mcL (0.0-0.2); Basophils % 0.5 %; Eosinophils # 0.2 K/mcL (0.0-0.6); Eosinophils % 1.9 %; Hematocrit 26.2 % (37.5-50.1); Immature Granulocytes % 0.7 % (0-4); Lymphocytes # 1.8 K/mcL (0.6-4.6); Lymphocytes % 16.5 %; Mean Corpuscular HGB Conc 34.4 g/dL (31.6-35.5); Mean Corpuscular Hemoglobin 35.2 pg (28.0-33.3); Mean Corpuscular Volume 102.3 fL (83.0-100.0); Mean Platelet Volume 10.4 fL (9.4-12.4); Monocytes # 1.2 K/mcL (0.0-1.3); Monocytes % 10.8 %; Neutrophils # 7.4 K/mcL (1.6-8.9); Platelet Count 398 K/mcL (140-400); Red Blood Count 2.56 M/mcL (4.19-5.50); Segmented Neutrophils % 69.6 %
[2017-08-06] MEDS: *HR* Enoxaparin 40 MG/0.4 ML SYRINGE SQ SCH (05:48)
[2017-08-06] MEDS: metroNIDAZOLE 500 MG TABLET PO SCH ×2 (05:49→14:30)
[2017-08-06 05:51] LABS: BUN/Creatinine Ratio 12 (6-26); Blood Urea Nitrogen 7 mg/dL (8-26); Calcium 8.5 mg/dL (8.6-10.8); Carbon Dioxide 21 mEq/L (19-29); Chloride 109 mEq/L (98-109); Glucose 97 mg/dL (70-99); Osmolality,Calculated 286 (280-300); Potassium 3.8 mEq/L (3.5-4.5); Sodium 139 mEq/L (136-145); eGFR For African Americans > 60 (> 60); eGFR For Non-African Americans > 60 (> 60)
[2017-08-06] MEDS: Folic Acid 1 MG TABLET PO SCH (08:56)
[2017-08-06] MEDS: Vitamin B Complex/Vit C/Vit E 1 EACH TABLET PO SCH (08:56)
[2017-08-06] MEDS: Thiamine (B-1) 100 MG TABLET PO SCH (08:56)
[2017-08-06] MEDS: Triamcinolone Acet 0.1% CRM 15 GM TUBE TP SCH (08:57)
[2017-08-06] MEDS: Ketoconazole Shampoo 120 ML BOTTLE TP SCH (08:57)
[2017-08-06] MEDS: Lactobacillus 1 EACH CAP.SPRINK PO SCH ×2 (08:57→21:42)
[2017-08-06] MEDS: Vancomycin Oral Soln 250 MG/2.5 ML UDC PO SCH ×2 (08:57→14:32)
--- NOTE | 2017-08-06 13:27 | Internal Med Progress Note ---
Date of Encounter: 08/06/17 Time of Encounter: 13:26 - Assessment and plan (1) Hypokalemia Current Visit: No Status: Acute (2) Alcohol abuse Current Visit: No Status: Chronic (3) Clostridium difficile infection Current Visit: No Status: Acute - Subjective Interval history: L no diarrhea reported. Patient's only complaint is his neck is sore apply some heat. - Constitutional Vitals: Temp Pulse Resp BP Pulse Ox 98.6 F 91 16 134/98 96 08/06/17 07:48 08/06/17 07:48 08/06/17 07:48 08/06/17 07:48 08/06/17 07:48 General appearance: Present: A&O X 3, pleasant, no acute distress. Absent: obese - Head Head exam: Present: atraumatic, normal inspection, normocephalic - Neck Neck exam general surgery: Present: supple, trachea midline. Absent: lymphadenopathy - Respiratory Respiratory exam: Present: CTAB. Absent: accessory muscle use, rales, rhonchi, wheezes - Cardiovascular Cardiovascular exam: Present: RRR, +S1, +S2. Absent: diastolic murmur, gallop, rubs, systolic murmur - GI/Abdominal GI/Abdominal exam: Present: normal bowel sounds, soft, no peritoneal signs. Absent: distended, tenderness Internal Medicine: Result - Labs CBC & Chem 7: 08/06/17 05:35 08/06/17 05:35 Labs: Short CBC 08/06/17 Range/Units 05:35 WBC 10.7 (4.3-11.1) K/mcL Hgb 9.0 L (12.9-16.9) g/dL Hct 26.2 L (37.5-50.1) % Plt Count 398 (140-400) K/mcL Neutrophils # 7.4 (1.6-8.9) K/mcL BMP 08/06/17 05:35 Sodium 139 Potassium 3.8 Chloride 109 Carbon Dioxide 21 BUN 7 L Creatinine 0.59 L Glucose 97 Calcium 8.5 L Lab is stable Consult Discharge Plan - Plan Referrals: Avtar Caba DO [Primary Care Provider] -
[2017-08-07] MEDS: *HR* Enoxaparin 40 MG/0.4 ML SYRINGE SQ SCH (04:17)
[2017-08-07] MEDS: Thiamine (B-1) 100 MG TABLET PO SCH (08:58)
[2017-08-07] MEDS: Vitamin B Complex/Vit C/Vit E 1 EACH TABLET PO SCH (08:58)
[2017-08-07] MEDS: Folic Acid 1 MG TABLET PO SCH (08:59)
[2017-08-07] MEDS: Lactobacillus 1 EACH CAP.SPRINK PO SCH ×2 (08:59→19:56)
[2017-08-08] MEDS: *HR* Enoxaparin 40 MG/0.4 ML SYRINGE SQ SCH (05:03)
[2017-08-08] MEDS: Thiamine (B-1) 100 MG TABLET PO SCH (09:06)
[2017-08-08] MEDS: Acetaminophen 325 MG TABLET PO PRN ×2 (09:06→19:54)
[2017-08-08] MEDS: Lactobacillus 1 EACH CAP.SPRINK PO SCH ×2 (09:06→19:54)
[2017-08-08] MEDS: Vitamin B Complex/Vit C/Vit E 1 EACH TABLET PO SCH (09:07)
[2017-08-08] MEDS: Folic Acid 1 MG TABLET PO SCH (09:07)
--- NOTE | 2017-08-08 14:02 | Internal Med Progress Note ---
Date of Encounter: 08/08/17 Time of Encounter: 14:00 - Assessment and plan (1) Hypokalemia Current Visit: No Status: Acute Assessment and plan: Resolved (2) Alcohol abuse Current Visit: No Status: Chronic Assessment and plan: By history (3) Clostridium difficile infection Current Visit: No Status: Acute Assessment and plan: Resolve - Time Spent With Patient less than 15 minutes - Subjective Interval history: Patient is doing well walking back and forth to the gym is only complaint is he wants to go back to bed TIME. - Constitutional Vitals: Temp Pulse Resp BP Pulse Ox 98.6 F 89 20 125/76 99 08/07/17 19:19 08/07/17 19:19 08/07/17 19:19 08/07/17 19:19 08/07/17 19:19 General appearance: Present: A&O X 3, pleasant, no acute distress. Absent: obese - Head Head exam: Present: atraumatic, normal inspection, normocephalic - Neck Neck exam general surgery: Present: supple, trachea midline. Absent: lymphadenopathy - Respiratory Respiratory exam: Present: CTAB. Absent: accessory muscle use, rales, rhonchi, wheezes - Cardiovascular Cardiovascular exam: Present: RRR, +S1, +S2. Absent: diastolic murmur, gallop, rubs, systolic murmur Internal Medicine: Result - Labs CBC & Chem 7: 08/06/17 05:35 08/06/17 05:35 Labs: Labs stable Consult Discharge Plan - Plan Referrals: Avtar Caba DO [Primary Care Provider] -
[2017-08-09] MEDS: *HR* Enoxaparin 40 MG/0.4 ML SYRINGE SQ SCH (06:29)
[2017-08-09] MEDS: Lactobacillus 1 EACH CAP.SPRINK PO SCH ×2 (09:15→21:18)
[2017-08-09] MEDS: Vitamin B Complex/Vit C/Vit E 1 EACH TABLET PO SCH (09:15)
[2017-08-09] MEDS: Folic Acid 1 MG TABLET PO SCH (09:16)
[2017-08-09] MEDS: Thiamine (B-1) 100 MG TABLET PO SCH (09:16)
--- NOTE | 2017-08-09 13:58 | Internal Med Progress Note ---
Date of Encounter: 08/09/17 Time of Encounter: 13:56 - Assessment and plan (1) Hypokalemia Current Visit: No Status: Acute Assessment and plan: Okay so he will be discharged tomorrow on year or more Brenda's lap (2) Alcohol abuse Current Visit: No Status: Chronic Assessment and plan: Not currently (3) Clostridium difficile infection Current Visit: No Status: Acute Assessment and plan: Resolved - Time Spent With Patient less than 15 minutes - Subjective Interval history: Patient is doing well walking back and forth to the gym is only complaint is he wants to go back to bed TIME. - Constitutional Vitals: Temp Pulse Resp BP Pulse Ox 98.1 F 80 18 142/75 97 08/09/17 07:00 08/09/17 07:00 08/09/17 07:00 08/09/17 07:00 08/09/17 07:00 General appearance: Present: A&O X 3, pleasant, no acute distress. Absent: obese - Head Head exam: Present: atraumatic, normal inspection, normocephalic - Neck Neck exam general surgery: Present: supple, trachea midline. Absent: lymphadenopathy - Respiratory Respiratory exam: Present: CTAB. Absent: accessory muscle use, rales, rhonchi, wheezes - Cardiovascular Cardiovascular exam: Present: RRR, +S1, +S2. Absent: diastolic murmur, gallop, rubs, systolic murmur Internal Medicine: Result - Labs CBC & Chem 7: 08/06/17 05:35 08/06/17 05:35 Consult Discharge Plan - Plan Referrals: Avtar Caba DO [Primary Care Provider] -
[2017-08-09] MEDS: Acetaminophen 325 MG TABLET PO PRN (21:18)
[2017-08-10 05:37] LABS: BUN/Creatinine Ratio 17 (6-26); Blood Urea Nitrogen 11 mg/dL (8-26); Calcium 8.7 mg/dL (8.6-10.8); Carbon Dioxide 21 mEq/L (19-29); Chloride 110 mEq/L (98-109); Glucose 101 mg/dL (70-99); Osmolality,Calculated 288 (280-300); Potassium 3.6 mEq/L (3.5-4.5); Sodium 139 mEq/L (136-145); eGFR For African Americans > 60 (> 60); eGFR For Non-African Americans > 60 (> 60)
[2017-08-10] MEDS: *HR* Enoxaparin 40 MG/0.4 ML SYRINGE SQ SCH (07:00)
[2017-08-10 07:37] VITALS: BP 146/78
[2017-08-10] MEDS: Folic Acid 1 MG TABLET PO SCH (10:14)
[2017-08-10] MEDS: Lactobacillus 1 EACH CAP.SPRINK PO SCH (10:14)
[2017-08-10] MEDS: Vitamin B Complex/Vit C/Vit E 1 EACH TABLET PO SCH (10:14)
[2017-08-10] MEDS: Thiamine (B-1) 100 MG TABLET PO SCH (10:14)
--- NOTE | 2017-08-10 12:22 | Discharge Summary ---
Date of Encounter: 08/10/17 Time of Encounter: 12:21 - Discharge Diagnosis (1) Hypokalemia Priority: Secondary Status: Acute (2) Alcohol abuse Priority: Primary Status: Chronic (3) Clostridium difficile infection Priority: Primary Status: Acute - Discharge Medications Home Medications: Acetaminophen [Tylenol] 650 mg PO Q6HR PRN tab 07/26/17 [Rx] Folic Acid 1 mg PO DAILY tab 07/26/17 [Rx] Lactobacillus [Culturelle] 1 each PO BID 07/26/17 [Rx] Omeprazole [PriLOSEC] 20 mg PO DAILY@30 07/26/17 [Rx] Potassium Chloride 40 meq PO BID 07/26/17 [Rx] Thiamine (B-1) [Vitamin B-1] 100 mg PO DAILY tab 07/26/17 [Rx] Vancomycin Oral Soln [Vancocin] 250 mg PO QID 07/26/17 [Rx] Vitamin B Complex/Vit C/Vit E [Stresstab] 1 each PO DAILY tab 07/26/17 [Rx] metroNIDAZOLE [Flagyl] 500 mg PO Q6HR tab 07/26/17 [Rx] Allergies/Adverse Reactions: 3 Allergy/AdvReac Type Severity Reaction Status Date / Time No Known Allergies Allergy Verified 03/20/17 19:49 Date of admission: 07/26/17 12:46 Primary care physician: Avtar Caba DO Consults: 07/26/17 12:42 Consult to Occupational Therapy [CONS] Routine Comment: eval Reason for Consult: eval Consult to Physical Therapy [CONS] Routine Comment: eval Reason for Consult: eval Consult to Recreational Therapy [CONS] Routine Comment: Consult to [employer] [CONS] Routine Reason for SW Consult: d/c planning 07/29/17 17:03 dietary consult [Consult to Nutrition] [CONS] Routine Comment: Consulting Provider: NUTRITION Reason for Dietary Consult: Other Other:: albumin 1.9, histoyr of alcoholism, protein needs Discharging clinician: Raphael Tran Anticipated date of discharge: 08/10/17 - Patient Status Disposition: Home Health Service Condition: Good Functional capacity at discharge: uses cane/walker Overall status at discharge: patient is progressing back to baseline - Discharge Instructions Follow Up With: Avtar Caba DO [Primary Care Provider] - 08/16/17 10:20 am (Dr bob @ [facility] Dr Caba has left practice) - Diet and Activity Activity: ambulate only with your walker Interval History: Patient initially was septic. Got Clostridium difficile. He is a heavy EtOH user. Very debilitated and came for therapy Hospital course: Mr. Horne is a 67 year old male Who lives alone and off had sepsis and heavy EtOH use. He received therapies ambulating length of the ivy O be discharged home with his family today receiving home health - Time Spent with Patient Total time spent providing and/or coordinating discharge services: Less than 30 minutes - Constitutional Vitals: Temp Pulse Resp BP Pulse Ox 98.3 F 79 18 146/78 96 08/10/17 07:36 08/10/17 07:36 08/10/17 07:36 08/10/17 07:36 08/10/17 07:36 General appearance: Present: A&O X 3, pleasant, no acute distress. Absent: obese - Head Head exam: Present: atraumatic, normal inspection, normocephalic - Neck Neck exam general surgery: Present: supple, trachea midline. Absent: lymphadenopathy - Respiratory Respiratory exam: Present: CTAB. Absent: accessory muscle use, rales, rhonchi, wheezes - Cardiovascular Cardiovascular exam: Present: RRR, +S1, +S2. Absent: diastolic murmur, gallop, rubs, systolic murmur
--- NOTE | 2017-08-10 12:25 | Physician Discharge Referral ---
Home Health/Hosp Referral Info Provider in Charge Post Discharge: PCP - Diagnosis (1) Hypokalemia Priority: Secondary Status: Acute (2) Alcohol abuse Priority: Primary Status: Chronic (3) Clostridium difficile infection Priority: Primary Status: Acute - Respiratory Orders Smoking Cessation: Smoking cessation has been advised. For more information, call the [place] Tobacco Quit Line at 8-263-BLRO-NOW. - Diet/Nutrition Diet/Nutrition Orders: Regular - Activity Activity Orders: Walker - Services Needed Following services are medically necessary services: Nursing, Physical Therapy - Transfer Medications Home Medications: Acetaminophen [Tylenol] 650 mg PO Q6HR PRN tab 07/26/17 [Rx] Folic Acid 1 mg PO DAILY tab 07/26/17 [Rx] Lactobacillus [Culturelle] 1 each PO BID 07/26/17 [Rx] Omeprazole [PriLOSEC] 20 mg PO DAILY@0630 07/26/17 [Rx] Potassium Chloride 40 meq PO BID 07/26/17 [Rx] Thiamine (B-1) [Vitamin B-1] 100 mg PO DAILY tab 07/26/17 [Rx] Vancomycin Oral Soln [Vancocin] 250 mg PO QID 07/26/17 [Rx] Vitamin B Complex/Vit C/Vit E [Stresstab] 1 each PO DAILY tab 07/26/17 [Rx] metroNIDAZOLE [Flagyl] 500 mg PO Q6HR tab 07/26/17 [Rx] Allergies/Adverse Reactions: 3 Allergy/AdvReac Type Severity Reaction Status Date / Time No Known Allergies Allergy Verified 03/20/17 19:49 Certification: Further, I certify that my clinical findings support that this patient is homebound (i.e. absences from home require considerable and taxing effort and are for medical reasons or rastafari services or infrequently or short duration when for other reasons) because: Homebound Reason: Patient requires assistance of a person or device to safely leave home Attestation: My signature below is to certify that this patient is under my care and that I, or nurse practitioner, or a physician's entry level administrative assistant working with me, has a face-to -face encounter with this patient.
== END 2017-08-10 13:00 | disposition home health service (06) | DRG 372 ==
LOC: INPGRE 07-26 12:46
PROVIDERS: ADMIT Internal Medicine; ATTEND Internal Medicine